=== PATIENT | male | born 2005 | race Two or more races ===

== ENCOUNTER 2025-02-02 22:37 | Emergency (ER) | payer MEDICAID, SELFPAY ==
[2025-02-02 22:39] VITALS: PULSE 92; RESP 18; O2SAT 99
[2025-02-02 22:43] VITALS: BMI 24.4
[2025-02-02 22:47] VITALS: BP 143/88; RESP 21; TEMP 36.6; O2SAT 96
[2025-02-02 22:48] VITALS: BP 143/88; PULSE 99; RESP 18; TEMP 36.4; O2SAT 95
--- NOTE | 2025-02-02 22:56 | PD.EDNV ---
Nausea/Vomit./Diarrhea-RME/HPI General Chief complaint: Nausea/Vomiting/Diarrhea Stated complaint: NAUSEA Time Seen by Provider: 02/02/25 23:03 Arrival date/time: 02/02/25 22:37 RME / HPI RME / HPI Narrative: This section includes all my notes and documentations, including HPI, PE, and ED course. Hermann Drummond MD HPI: ROS: All negative except as documented in HPI. Physical Exam: General: Alert and oriented. No acute distress. Eyes: Conjunctivae and lids clear. EOMI. PERRL. ENT: No nasal congestion. Pharynx normal. Tympanic membrane normal bilaterally. Neck: Supple. No lymphadenopathy. No JVD. Heart: RRR. Lungs: No respiratory distress. Good air movement. No rhonchi, wheezing, rales. Chest: No tenderness. Abdomen: Soft and nontender. Normal bowel sounds. No distension. No rebound or guarding. Back: No CVA tenderness. Legs: No clubbing, cyanosis, edema. Skin: Warm and dry. Neuro: Alert and oriented X 3. Cranial Nerves II-XII grossly intact. No peripheral motor deficits. Musculoskeletal: All major joints and bones are not tender with no limited ROM. I reviewed EMS notes. I reviewed all diagnostic test results: My interpretation of the EKG is: My interpretation of the chest x-ray is: My review of the CT report is: Blood tests and urine tests Covid/Influenza At this point, diagnoses include: Multiple abrasions, Multiple contusions. Treatment here included: Kelfex, Bacitracin, Tdap. Recommended outpatient wound care. Based on my best medical judgment, made decision no further evaluation or treatment indicated at this time. Patient understands and agrees to the discharge instructions customized and printed, see below. Discharge Instructions from Dr. Drummond printed for you: 1. After evaluation, fortunately there is no very serious injury. Such as brain injury or broken bone or internal organ injury. 2. Wound care of your multiple skin abrasions as instructed in the attached handout. 3. Apply ice to injured areas for 20 minutes every 2-3 hours today and tomorrow. Ibuprofen 800 mg every 6-8 hours today and tomorrow to decrease inflammation then as needed. 4. See a private doctor outside the ER on 02/04/2025 for recheck and further care. To make sure you are healing properly without any complications. 5. Seek immediate medical care with fever, spreading redness from a wound, or with any concerns. Hermann Drummond MD Related Data Previous Rx's ?Medication ?Instructions ?Recorded ibuprofen 600 mg tablet 600 mg PO Q6H PRN pain #30 tabs 05/05/20 ibuprofen 600 mg tablet 600 mg PO Q6H #30 tabs 02/27/24 ondansetron 4 mg disintegrating 4 mg PO Q8H PRN nausea and 02/27/24 tablet vomiting #10 tabs doxycycline monohydrate 100 mg 100 mg PO BID #14 caps 04/18/24 capsule ibuprofen 800 mg tablet 800 mg PO TID PRN pain #30 tabs 04/18/24 Allergies Allergy/AdvReac Type Severity Reaction Status Date / Time No Known Allergies Allergy Verified 03/21/24 17:02 Review of Systems Review of Systems Systems Reviewed: All systems reviewed, normal except as documented Past Medical History Past Medical History PSYCHO/SOCIAL: Positive Attention Deficit Hyperactivity Disorder OTHER HISTORY: Positive Autism Social History SMOKING STATUS: Current some day smoker ED Exam Narrative Physical exam: Refer to HPI above Course Quality Measures none Orders Category Date Time Status Wound Care [Wound Care] NOW Care 02/02/25 23:04 Active Bacitracin Oint pkt Med 02/02/25 23:03 Once 1 gm TOP X1 ONE TET,DIP/PERT AC (Adult)-Tdap [Boostrix Adult (Tdap) Med 02/02/25 23:03 Once Vacc] 0.5 ml IMI .ONCE ONE cephALEXin [Keflex] Med 02/02/25 23:03 Once 1,000 mg PO X1 ONE Vital Signs Vital signs: Vital Signs Temperature 97.8 F 02/02/25 22:47 Respiratory Rate 21 H 02/02/25 22:47 Blood Pressure 143/88 H 02/02/25 22:47 Pulse Oximetry (%) 96 02/02/25 22:47 Oxygen Delivery Method Room Air 02/02/25 22:47 Nausea/Vomiting/Diarrhea MDM Narrative MDM Narrative:: Scribe Attestation: ISana, am scribing for and in the presence of Dr. Drummond. Provider Notation: Although this document has been carefully reviewed, there may still be some phonetic and other typographical errors.? These errors are purely grammatical due to imperfections in the software program and should not be construed in any way to? compromise the substance of the patient's medical care during this visit. Patient data External records reviewed:: [facility] previous records (Reviewed prior ED records from 04/18/24. Patient was seen for Abrasion of knee.) and EMS form Clinical information provided by:: patient and EMS Patient has the following chronic illnesses:: ADHD, Autism How is presenting disease/condition affected by chronic disease/condition?: uneffected by Evaluation data The following diagnostics were reviewed and interpreted by me:: other (specify) (N/A) Lab and/or radiology exams considered but not ordered:: None Interpretation Summary: N/A Medications / Prescriptions Medications / Prescriptions considered but not ordered:: None Medication administrations:: Medication Administration History Bacitracin (Bacitracin Oint 1 Gm Packet) 1 gm TOP X1 ONE Stop: 02/02/25 23:04 Cephalexin HCl (Cephalexin 250 Mg Capsule) 1,000 mg PO X1 ONE Stop: 02/02/25 23:04 Diphtheria/Tetanus/Acell Pertussis (Diphth,Pertuss(Acell),Tet Vac 0.5 Ml Syr- Adult) 0.5 ml IMi .ONCE ONE Stop: 02/02/25 23:04 Bacitracin, Keflex, Tdap Consultations Consultation(s) initiated? (list below): No Diagnosis Nausea Differential Diagnosis: food poisoning, gastroenteritis, drug-induced nausea and vomiting and dehydration Most likely diagnosis given after review of the tests above:: Multiple abrasions, Multiple contusions Admission Indicated Admission indicated?: not indicated Explain why admission is indicated or not indicated:: With no severe illness there was no indication for admission. Admission Request Was there a request for admission?: No Disposition Plan Disposition Plan: Discharge Discharge Attestation Discharge Attestation: The patient and all family members were given an opportunity to ask questions and understood the discharge instructions. Discharge instructions specifically effects, indications for sooner follow up or return to the emergency department, and the expected course of current diagnosis. Patient condition: Stable Discharge Plan Plan Patient Disposition: HOME (Self Care) Prescriptions/Referrals Prescriptions/Med Rec: No Action ibuprofen 600 mg tablet 600 mg PO Q6H PRN (Reason: pain) Qty: 30 0RF doxycycline monohydrate 100 mg capsule 100 mg PO BID Qty: 14 0RF ibuprofen 800 mg tablet 800 mg PO TID PRN (Reason: pain) Qty: 30 0RF ibuprofen 600 mg tablet 600 mg PO Q6H Qty: 30 0RF ondansetron 4 mg tablet,disintegrating 4 mg PO Q8H PRN (Reason: nausea and vomiting) Qty: 10 0RF Problem List Clinical Impression: Multiple abrasions, Multiple contusions Patient/Caregiver Discharge Instructions Discharge Activity: activity as tolerated Education Materials: ED Abrasions, ED Soft Tissue Contusion Additional Instructions: Discharge Instructions from Dr. Drummond printed for you: 1. After evaluation, fortunately there is no very serious injury. Such as brain injury or broken bone or internal organ injury. 2. Wound care of your multiple skin abrasions as instructed in the attached handout. 3. Apply ice to injured areas for 20 minutes every 2-3 hours today and tomorrow. Ibuprofen 800 mg every 6-8 hours today and tomorrow to decrease inflammation then as needed. 4. See a private doctor outside the ER on 02/04/2025 for recheck and further care. To make sure you are healing properly without any complications. 5. Seek immediate medical care with fever, spreading redness from a wound, or with any concerns. Print Language: Kazakh Stand Alone Forms: [facility] Award Info., Patient Portal Info Letter
--- NOTE | 2025-02-02 23:18 | PC.NURSE ---
PATIENT REFUSED TO SIGN D/C PAPERS AND MEDICATION ORDERED BY PROVIDER. PROVIDER WAS NOTIFIED.
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
== END 2025-02-02 23:19 | disposition home or self-care (01) ==
LOC: SERX 23:16
PROVIDERS: Emergency Provider Emergency Medicine
DX: T14.8XXA Other injury of unspecified body region, initial encounter (principal); Y09 Assault by unspecified means
CPT/HCPCS: 99282